=== PATIENT | female | born 1985 | race Caucasian/White ===

== ENCOUNTER 2019-10-23 08:18 | Emergency (ER) | payer OTHER, SELFPAY ==
[~2019-10-23] VITALS: Ht 157.5 cm; Wt 100.0 kg
[~2019-10-23 08:18] MED LIST: NOCURR
[2019-10-23] MEDS ORDERED: TraMADol HCL 50 MG TABLET PO ONE (09:45)
[2019-10-23] MEDS ORDERED: CLINDAMYCIN HCL 150 MG CAPSULE PO ONE (09:45)
[2019-10-23 09:53] VITALS: BP 118/72
== END 2019-10-23 10:27 | disposition home or self-care (01) ==
LOC: EMS 08:28
DX: K02.9 Dental caries, unspecified (principal); F17.210 Nicotine dependence, cigarettes, uncomplicated; Z88.0 Allergy status to penicillin